=== PATIENT | male | born 1960 | race Caucasian/White ===

== ENCOUNTER → 2016-07-09 | Outpatient (CLI) | payer BC ==
[~2016-07-09] VITALS: Ht 167.6 cm; Wt 98.8 kg
[~2016-07-09] MED LIST: ASPIR 8181 MG PO; HYSINGLA ER80 MG PO; IBUPROFEN 200200 M1 PO; MOBIC15 MG PO; MS CONTIN 30 MG30 MG PO; MS CONTIN15 MG PO; MS CONTIN30 MG PO; NORCO 5-325 TA1 EACH PO; NYQUIL PO; PERCOCET 5-3251 EACH PO; PRAVACHOL20 MG PO; PREDNISONE 20 M20 MG PO; PRINIVIL20 M1 PO; PRINZIDE 20-121 EACH PO; ROXICODONE15 M1 PO; VALIUM5 MG PO; ZANAFLEX4 MG PO
--- NOTE | ~2016-07-09 | HPC ---
[facility] [place] [address] PAIN MANAGEMENT CONSULTATION Name: RUTH KUMAR Room #: REG TRACEY Sanchez#: [id number] Admission: 07/09/16 Attend Phys: Luis Patterson DO Discharge: Date of : 58 Report #: [id number] THIS REPORT FOR: //name// CC: Phu Patterson HISTORY OF PRESENT ILLNESS: The patient is a 56-year-old gentleman last seen in the pain clinic, 02/24/2016. The patient came to my service in November of last year, taking high-dose short-acting opiates, oxycodone 15 mg 6 a day. He has been rotated to morphine extended release 30 mg in the morning, 15 at noon and 30 at night, roughly 50% decrease in his overall opiate load. Last urine drug screen, 02/24/2016 (at the last visit) was positive for prescribed medications. He returns to pain clinic today noting that while medications are providing sufficient analgesia to participate in activities of daily living, he still has some ongoing pain he rates a 6/10. He states pain is low back, radiates into his hips, posterior thigh with some paresthesia in his anterior thighs with sitting too long. He had worked in the [employer] industry; unfortunately, he recently lost his job. He is on his 's insurance and 56 years of age. He is still somewhat looking for employment. Presently, he notes pain is exacerbated with sitting or standing for any period of time. Medications again do provide analgesia. PHYSICAL EXAMINATION: GENERAL: Shows 56-year-old gentleman. BMI is 35.2 kilograms per meter squared. VITAL SIGNS: Stable. NEUROLOGIC: Alert and oriented to person, place and time. Judged to be a reasonable historian. Rises from chair using armrest, modestly antalgic gait, though. Lower extremity strength is generally preserved. Straight leg raise is negative. Some hip flexion issue with weakness. DIAGNOSTIC STUDIES: Reviewed diagnostic studies including MRI of the lumbar spine, dated from 2011, noting facet degenerative changes, worse at L5-S1; moderate stenosis and no dramatic surgical compromises noted. ASSESSMENT: Symptomatic lumbar radiculopathy; axial back pain, requiring complex medication management, stable on baseline medication. Last urine drug screen at last visit positive for prescribed medications. RECOMMENDATIONS: Long discussion with the patient today about therapeutic options. We have elected to continue MS Contin 30 mg b.i.d. with MS Contin 15 mg at noon. I did suggest that he try dropping the noon dose to see if this changes functional ability. If, after a few weeks, he is able to get by with 30 mg of MS Contin b.i.d., he may consider dropping the evening dose from 30 to [address] [address] PAIN MANAGEMENT CONSULTATION Name: RUTH KUMAR Room #: REG CLElisabeth Sanchez#: [id number] Admission: 07/09/16 Attend Phys: Luis Patterson DO Discharge: Date of : 58 Report #: [id number]. I have taken the liberty, however, of writing for 2 months of the current dose of 75 mg MS today. Discharged in good and stable condition. We reviewed the fact that opiate medications are being used to provide analgesia adequate to support activities of daily living, not attempting to achieve a specific pain score on the 0-10 Visual Analog Scale. The current opiate medications are providing sufficient analgesia to allow the patient to participate in activities of daily living. The patient is not exhibiting any aberrant behavior suggestive of drug diversion. The patient is not having any adverse reactions to medications. The patient is not suffering from daytime somnolence or mental acuity changes. The patient is managing opiate-induced constipation with appropriate dluf-dbz-zrjzati agents and dietary considerations. The patient was counseled on concern for caution with operating a motor vehicle while using opiate medications. A physical exam was performed and the patient's functional status was evaluated. All patients with back pain were advised against the bed rest greater than 4 days and were advised to return to normal activities. Pain score assessment was noted and the treatment plan was reviewed with the patient. All current medications, both prescribed and OTC were reviewed and reconciled on the electronic medical record. Tobacco screening was accomplished and smoking cessation was advised when indicated. BMI was noted and diet/exercise modification was recommended for all patients following outside normal parameters. I reviewed with the patient today their responsibilities to safeguard prescription medications, reviewed their responsibility to utilize medications only as prescribed by the physician. They are to seek and receive pain medications only from 1 physician group ( [facility]). They are to use 1 pharmacy and keep the clinic informed if they change pharmacies. Their responsibilities include making followup visits in a timely fashion and to avoid abrupt discontinuation of medication usage. Their responsibilities further include bringing their medications (bottles from the pharmacy with residual pills) to the visit for possible confirmation of pill counts and the patient understands it is their responsibility to submit to random drug screens to ensure both that the medications prescribed are present, and that no other controlled substances are present. All prescriptions provided today were generated electronically. By: [id number] Luis Patterson DO /nt
[2016-07-09 09:58] VITALS: BP 145/74
== END ==
LOC: PAIN 07:34
DX: M54.16 Radiculopathy, lumbar region (principal); I10 Essential (primary) hypertension; F17.210 Nicotine dependence, cigarettes, uncomplicated

== ENCOUNTER → 2016-09-03 | Outpatient (CLI) | payer BC ==
[~2016-09-03] VITALS: Ht 167.6 cm; Wt 94.1 kg
--- NOTE | ~2016-09-03 | HPC ---
[facility] [address] [place] [address] PAIN MANAGEMENT CONSULTATION Name: RUTH KUMAR Room #: REG TRACEY Sanchez#: [id number] Admission: 09/03/16 Attend Phys: Luis Patterson DO Discharge: Date of : 58 Report #: [id number] THIS REPORT FOR: //name// CC: Phu Patterson The patient is a 56-year-old gentleman, last seen in the pain clinic 07/09/2016, continued on MS Contin 30 mg b.i.d. with 15 mg midday. Taking 75 mEq of morphine for chronic axial back pain, lumbar radiculopathy requiring complex medication management. Prior urine drug screen was accomplished 02/24/2016, positive for prescribed medications. Returns to pain clinic today, last visit was 07/09/2016. Suggested trying to drop the noon time dose though the patient found that while doing this he had exacerbation of back pain, low back, right greater than left leg. To his credit, he has significantly attenuated his tobacco habit, he is down to smoking about 4 cigarettes a day, though he is also using a "E cigarettes." his pain is a 6/10. PHYSICAL EXAMINATION: Relatively otherwise unchanged. A 56-year-old gentleman, BMI is 33.5 kilograms per meter squared. Blood pressure 139/75, pulse 75, respirations are 20. Alert and oriented to person, place and time, judged to be a reasonable historian. Rises from chair using armrest. Modestly antalgic gait, diffuse tenderness across the low back, no discrete triggers points are noted. We reviewed the fact that opiate medications are being used to provide analgesia adequate to support activities of daily living, not attempting to achieve a specific pain score on the 0-10 Visual Analog Scale. The current opiate medications are providing sufficient analgesia to allow the patient to participate in activities of daily living. The patient is not exhibiting any aberrant behavior suggestive of drug diversion. The patient is not having any adverse reactions to medications. The patient is not suffering from daytime somnolence or mental acuity changes. The patient is managing opiate-induced constipation with appropriate irpi-ukc-ezwgevm agents and dietary considerations. The patient was counseled on concern for caution with operating a motor vehicle while using opiate medications. A physical exam was performed and the patient's functional status was evaluated. All patients with back pain were advised against the bed rest greater than 4 days and were advised to return to normal activities. Pain score assessment was noted and the treatment plan was reviewed with the patient. All current medications, both prescribed and OTC were reviewed and reconciled on the electronic medical record. Tobacco screening was accomplished and smoking cessation was advised when indicated. BMI was noted and diet/exercise modification was recommended for all patients following outside normal parameters. I reviewed with the patient today their responsibilities to [address] [address] PAIN MANAGEMENT CONSULTATION Name: RUTH KUMAR Room #: REG CL Daniel#: [id number] Admission: 09/03/16 Attend Phys: Luis Patterson DO Discharge: Date of : 58 Report #: [id number] prescription medications, reviewed their responsibility to utilize medications only as prescribed by the physician. They are to seek and receive pain medications only from 1 physician group ( [facility]). They are to use 1 pharmacy and keep the clinic informed if they change pharmacies. Their responsibilities include making followup visits in a timely fashion and to avoid abrupt discontinuation of medication usage. Their responsibilities further include bringing their medications (bottles from the pharmacy with residual pills) to the visit for possible confirmation of pill counts and the patient understands it is their responsibility to submit to random drug screens to ensure both that the medications prescribed are present, and that no other controlled substances are present. All prescriptions provided today were generated electronically. ASSESSMENT: Symptomatic lumbar radiculopathy status post decompressive laminectomy requiring complex medication management. RECOMMENDATION: The patient had worked as a , he lost his job. He has 2 job interviews coming up this week. We have elected to continue his medication unchanged, MS Contin 30 mg b.i.d. with MS Contin 15 mg midday. I have taken the liberty of writing for 2 months current medications. We will follow up in 2 months for reevaluation. If his job situation is stable and he is doing reasonably well, we will again try weaning his opiate load as able. <ELECTRONICALLY SIGNED> By: Luis Patterson DO 09/07/16 1606 [id number] 17 Luis Patterson DO /nt
[2016-09-03 13:05] VITALS: BP 139/75
== END | disposition home or self-care (01) ==
LOC: PAIN 06:56
DX: M54.16 Radiculopathy, lumbar region (principal); Z98.890 Other specified postprocedural states; F17.210 Nicotine dependence, cigarettes, uncomplicated

== ENCOUNTER → 2016-10-22 | Outpatient (CLI) | payer BC ==
[~2016-10-22] VITALS: Ht 167.6 cm; Wt 92.2 kg
--- NOTE | ~2016-10-22 | HPC ---
[facility] [place] [address] PAIN MANAGEMENT CONSULTATION Name: RUTH KUMAR Room #: REG TRACEY Sanchez#: [id number] Admission: 10/22/16 Attend Phys: Luis Patterson DO Discharge: Date of : 58 Report #: [id number] THIS REPORT FOR: //name// CC: Phu Patterson The patient is a 56-year-old gentleman, prior seen in the pain clinic 09/03/2016, status post lumbar decompressive laminectomy and requiring complex medication management. Continued on MS Contin 30 mg b.i.d. with MS Contin 15 mg at noon. Trying to wean tobacco. Returns to pain clinic today. 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 Pain seems to be helped, but he still has ongoing paresthesia in the right leg and sitting develops numbness and tingling in the leg. Concern for ongoing untreated neuropathy, rates his pain as a 6 on VAS with current medication, symptoms have been present since 2007. I initially saw him in consultation in November 2015. He had 2 prior epidural injections, one with some efficacy and the second injection, caused increase in symptoms. When he came to me, he was on fairly high opiate load, taking oxycodone 15 mg 6 times a day (roughly equivalent to 135 mg of morphine). He is down to 75 mg of morphine a day. Unfortunately, his MRI somewhat dated from 2011, but even then he had asymmetric right disk protrusion at L4-L5 abutting the right exiting nerve roots with moderate bilateral neural foraminal stenosis. PHYSICAL EXAMINATION: Today, notes a 56-year-old gentleman, BMI is 32.8 kg/m2. Vital signs stable. Rises from chair using armrest. Nominally antalgic gait. Slight decreased right hip flexion and lower extremity extension strength. Deep tendon reflexes modestly diminished on the right compared to the left. Straight leg raise curiously is negative. We reviewed the fact that opiate medications are being used to provide analgesia adequate to support activities of daily living, not attempting to achieve a specific pain score on the 0-10 Visual Analog Scale. The current opiate medications are providing sufficient analgesia to allow the patient to participate in activities of daily living. The patient is not exhibiting any aberrant behavior suggestive of drug diversion. The patient is not having any adverse reactions to medications. The patient is not suffering from daytime somnolence or mental acuity changes. The patient is managing opiate-induced constipation with appropriate uguk-qru-qrmbpdn agents and dietary considerations. The patient was counseled on concern for caution with operating a motor vehicle while using opiate medications. A physical exam was performed and the patient's functional status was evaluated. All patients with back pain were advised against the bed rest greater than 4 days and were advised to return to normal activities. Pain score assessment was noted and the treatment plan was reviewed with the patient. All current [address] [address] PAIN MANAGEMENT CONSULTATION Name: RUTH KUMAR Room #: REG TRACEY Sanchez#: [id number] Admission: 10/22/16 Attend Phys: Luis Patterson DO Discharge: Date of : 58 Report #: [id number] medications, both prescribed and OTC were reviewed and reconciled on the electronic medical record. Tobacco screening was accomplished and smoking cessation was advised when indicated. BMI was noted and diet/exercise modification was recommended for all patients following outside normal parameters. I reviewed with the patient today their responsibilities to safeguard prescription medications, reviewed their responsibility to utilize medications only as prescribed by the physician. They are to seek and receive pain medications only from 1 physician group ( [facility]). They are to use 1 pharmacy and keep the clinic informed if they change pharmacies. Their responsibilities include making followup visits in a timely fashion and to avoid abrupt discontinuation of medication usage. Their responsibilities further include bringing their medications (bottles from the pharmacy with residual pills) to the visit for possible confirmation of pill counts and the patient understands it is their responsibility to submit to random drug screens to ensure both that the medications prescribed are present, and that no other controlled substances are present. All prescriptions provided today were generated electronically. K-TRACS was reviewed, it is negative, the patient fills his prescriptions in [place]. ASSESSMENT: Symptomatic lumbar radiculopathy secondary to spinal stenosis. RECOMMENDATION: Discussion with the patient today about therapeutic options. The patient I think would benefit from decompressive laminectomy. He will need a new MRI. I have elected to continue his baseline narcotic unchanged, MS Contin 30 mg b.i.d. with MS Contin 15 mg at noon and no p.r.n. medication. I have taken the liberty of writing for 2 months of current medication. I did write for an MRI request. I did refer the patient to Dr. Art Munoz for surgical opinion after the MRI. By: [id number] Luis Patterson DO /nt
[2016-10-22 13:24] VITALS: BP 122/64
== END | disposition home or self-care (01) ==
LOC: PAIN 07:22
DX: M48.06 Spinal stenosis, lumbar region (principal); G89.29 Other chronic pain; F17.210 Nicotine dependence, cigarettes, uncomplicated; Z98.890 Other specified postprocedural states; Z79.891 Long term (current) use of opiate analgesic; Z79.82 Long term (current) use of aspirin; Z79.899 Other long term (current) drug therapy

== ENCOUNTER → 2016-12-20 | Outpatient (CLI) | payer BC ==
[~2016-12-20] VITALS: Ht 167.6 cm; Wt 92.3 kg
--- NOTE | ~2016-12-20 | HPC ---
[facility] [place] [address] [address] PAIN MANAGEMENT CONSULTATION Name: RUTH KUMAR Room #: REG TRACEY Sanchez#: [id number] Admission: 12/20/16 Attend Phys: Luis Patterson DO Discharge: Date of : 58 Report #: [id number] THIS REPORT FOR: //name// CC: Phu Patterson The patient is a 56-year-old gentleman being treated for symptomatic lumbar radiculopathy secondary to spinal stenosis, requiring high-risk complex medication management. Last seen in the pain clinic on 10/22/2016. Continued on MS Contin 30 mg in the morning, 15 at noon, 30 at night. Having ongoing low back and right leg pain. A component of paresthesia. Describes a burning dysesthesia in his thighs with sitting. The patient continues to smoke though he was counseled regarding same. He is trying to wean down. I had ordered MRI at last visit, though patient was unable to get this accomplished due to inability to afford the copay. He returns to pain clinic noting pain is a 6 on a VAS. He is interested in possibly pursuing a more definitive surgical intervention. Unfortunately, his last MRI was back in 2011. At that time, focal disk was noted at L4-L5 along with asymmetric disk protrusion at L5-S1, compromising the exiting nerve root at this level. I suspect that these symptoms have simply gotten worse over time. PHYSICAL EXAMINATION: Unchanged from last visit, 56-year-old gentleman, BMI is 32.8 kilograms per meter squared. Vital signs stable as noted in the EMR. Rises from chair using armrest. Modestly antalgic gait. Again, pain in the bilateral thighs when sitting, though on ambulation, he has paresthesia in the right leg with slight decreased right hip flexion and lower extremity extension strength. ASSESSMENT: Lumbar radiculopathy secondary to spinal stenosis, requiring high-risk complex medication management. RECOMMENDATIONS: Current medication unchanged, MS Contin 30 mg in the morning, 15 at noon, 30 at night. I have taken the liberty of writing for 2 months of current medication. We reviewed the fact that opiate medications are being used to provide analgesia adequate to support activities of daily living, not attempting to achieve a specific pain score on the 0-10 Visual Analog Scale. The current opiate medications are providing sufficient analgesia to allow the patient to participate in activities of daily living. The patient is not exhibiting any aberrant behavior suggestive of drug diversion. The patient is not having any adverse reactions to medications. The patient is not suffering from daytime somnolence or mental acuity changes. The patient is managing opiate-induced constipation with appropriate klcv-yzl-seqqmgo agents and dietary considerations. The patient was counseled on concern for caution with operating [address] [address] PAIN MANAGEMENT CONSULTATION Name: RUTH KUMAR Room #: REG TRACEY Sanchez#: [id number] Admission: 12/20/16 Attend Phys: Luis Patterson DO Discharge: Date of : 58 Report #: [id number] a motor vehicle while using opiate medications. A physical exam was performed and the patient's functional status was evaluated. All patients with back pain were advised against the bed rest greater than 4 days and were advised to return to normal activities. Pain score assessment was noted and the treatment plan was reviewed with the patient. All current medications, both prescribed and OTC were reviewed and reconciled on the electronic medical record. Tobacco screening was accomplished and smoking cessation was advised when indicated. BMI was noted and diet/exercise modification was recommended for all patients following outside normal parameters. I reviewed with the patient today their responsibilities to safeguard prescription medications, reviewed their responsibility to utilize medications only as prescribed by the physician. They are to seek and receive pain medications only from 1 physician group ( [facility]). They are to use 1 pharmacy and keep the clinic informed if they change pharmacies. Their responsibilities include making followup visits in a timely fashion and to avoid abrupt discontinuation of medication usage. Their responsibilities further include bringing their medications (bottles from the pharmacy with residual pills) to the visit for possible confirmation of pill counts and the patient understands it is their responsibility to submit to random drug screens to ensure both that the medications prescribed are present, and that no other controlled substances are present. All prescriptions provided today were generated electronically. <ELECTRONICALLY SIGNED> By: Luis Patterson DO 12/21/16 0949 [id number] Luis Patterson DO /nt
[2016-12-20 10:23] VITALS: BP 144/78
== END | disposition home or self-care (01) ==
LOC: PAIN 06:56
DX: M54.16 Radiculopathy, lumbar region (principal); F17.200 Nicotine dependence, unspecified, uncomplicated; Z68.32 Body mass index [BMI] 32.0-32.9, adult

== ENCOUNTER → 2017-02-18 | Outpatient (CLI) | payer BC ==
[~2017-02-18] VITALS: Ht 167.6 cm; Wt 92.9 kg
--- NOTE | ~2017-02-18 | HPC ---
[facility] [address] [place] [address] PAIN MANAGEMENT CONSULTATION Name: RUTH KUMAR Room #: REG TRACEY Sanchez#: [id number] Admission: 02/18/17 Attend Phys: Luis Patterson DO Discharge: Date of : 58 Report #: [id number] THIS REPORT FOR: //name// CC: Phu Patterson The patient is a 56-year-old gentleman prior seen in the pain clinic on 12/20/2016, diagnosed with symptomatic lumbar radiculopathy secondary to spinal stenosis requiring high risk complex medication management. Stable on MS Contin 30 mg in the morning and night and 15 mg at midday. He returns to the pain clinic today noting medications are generally providing sufficient analgesia to participate in activities of daily living. I will give him samples of Movantik. He has neurogenic claudication. If he walks one block, pain in the low back, right greater than left leg. He likely needs back surgery, but we do need new MRI. He is unable to get the MRI presently due to cost concerns. He is planning on getting the MRI the first of the year. We reviewed the fact that opiate medications are being used to provide analgesia adequate to support activities of daily living, not attempting to achieve a specific pain score on the 0-10 Visual Analog Scale. The current opiate medications are providing sufficient analgesia to allow the patient to participate in activities of daily living. The patient is not exhibiting any aberrant behavior suggestive of drug diversion. The patient is not having any adverse reactions to medications. The patient is not suffering from daytime somnolence or mental acuity changes. The patient is managing opiate-induced constipation with appropriate ecph-san-izsjfbi agents and dietary considerations. The patient was counseled on concern for caution with operating a motor vehicle while using opiate medications. A physical exam was performed and the patient's functional status was evaluated. All patients with back pain were advised against the bed rest greater than 4 days and were advised to return to normal activities. Pain score assessment was noted and the treatment plan was reviewed with the patient. All current medications, both prescribed and OTC were reviewed and reconciled on the electronic medical record. Tobacco screening was accomplished and smoking cessation was advised when indicated. BMI was noted and diet/exercise modification was recommended for all patients following outside normal parameters. I reviewed with the patient today their responsibilities to safeguard prescription medications, reviewed their responsibility to utilize medications only as prescribed by the physician. They are to seek and receive pain medications only from 1 physician group ( [facility]). They are to use 1 pharmacy and keep the clinic informed if they change pharmacies. Their responsibilities include making followup visits in a timely fashion and to avoid abrupt discontinuation of medication usage. Their responsibilities further include bringing their medications (bottles from the pharmacy with residual pills) to the visit for possible confirmation of pill counts and the patient [address] [address] PAIN MANAGEMENT CONSULTATION Name: RUTH KUMAR Room #: REG TRACEY Sanchez#: [id number] Admission: 02/18/17 Attend Phys: Luis Patterson DO Discharge: Date of : 58 Report #: [id number] understands it is their responsibility to submit to random drug screens to ensure both that the medications prescribed are present, and that no other controlled substances are present. All prescriptions provided today were generated electronically. PHYSICAL EXAMINATION: Unchanged. This is a 56-year-old gentleman and BMI is 33.1 kilograms per meter squared. Vital signs stable as noted in the EMR. Diffuse axial back pain. Rises from chair using armrest. Positive straight leg raise on the right slightly on the left. Lower extremity strength is generally preserved. ASSESSMENT: Symptomatic lumbar radiculopathy secondary to spinal stenosis requiring high risk complex medication management. RECOMMENDATION: Continue baseline medication unchanged for another 2 months. Follow up at that time earlier if needed. <ELECTRONICALLY SIGNED> By: Luis Patterson DO 02/22/17 0943 [id number] Luis Patterson DO /nt
[2017-02-18 10:22] VITALS: BP 148/68
== END ==
LOC: PAIN 06:46
DX: M54.16 Radiculopathy, lumbar region (principal); M48.061 Spinal stenosis, lumbar region without neurogenic claudication; Z79.899 Other long term (current) drug therapy

== ENCOUNTER → 2017-04-15 | Outpatient (CLI) | payer BC ==
[~2017-04-15] VITALS: Ht 167.6 cm; Wt 93.0 kg
--- NOTE | ~2017-04-15 | HPC ---
[facility] [address] [address] PAIN MANAGEMENT CONSULTATION Name: RUTH KUMAR Room #: REG MALCOLMElisabeth Sanchez#: [id number] Admission: 04/15/17 Attend Phys: Luis Patterson DO Discharge: Date of : 58 Report #: [id number] THIS REPORT FOR: //name// CC: Phu Patterson The patient is a 56-year-old gentleman, prior seen in the pain clinic on 02/18/2017, continued on MS Contin 30 mg in the morning, 15 in the afternoon and 30 at night for ongoing lumbar radiculopathy secondary to spinal stenosis. The patient returns to pain clinic today. Continues to have ongoing neurogenic claudication. States if he stands or walks greater than about 5 minutes, pain becomes problematic. Has left greater than right leg weakness. Straight leg raise is grossly positive bilaterally. Neurogenic claudication is manifested as "heavy legs" with paresthesia in his thighs when sitting. Pain has been present from about 2007. Rates it an 8 on a VAS with current medication. We talked about moving forward with surgery sometime this year (2018). He has postponed due to economic reasons. PHYSICAL EXAMINATION: Shows 56-year-old gentleman, BMI 33.1 kilograms per meter squared. Blood pressure is elevated today 192/90, pulse 90, respirations 18. He did not take his lisinopril this morning. MEDICATIONS: List was reconciled, which includes the aforementioned lisinopril, pravastatin and pain medications as noted above. He has not fallen in the last 3 months. We reviewed his opiate consent to treat contract which was signed on 12/02/2015. Again, with a moderately antalgic gait and neurogenic claudication. Positive straight leg raise bilaterally, left greater than right. Objective leg weakness. We elected to repeat an MRI. Prior MRI from 2011 had noted facet degenerative changes and neural foraminal narrowing, moderate to mild facet arthropathy L4-L5, L5-1. We reviewed the fact that opiate medications are being used to provide analgesia adequate to support activities of daily living, not attempting to achieve a specific pain score on the 0-10 Visual Analog Scale. The current opiate medications are providing sufficient analgesia to allow the patient to participate in activities of daily living. The patient is not exhibiting any aberrant behavior suggestive of drug diversion. The patient is not having any adverse reactions to medications. The patient is not suffering from daytime somnolence or mental acuity changes. The patient is managing opiate-induced constipation with appropriate zbnv-lvi-hiutjgu agents and dietary considerations. The patient was counseled on concern for caution with operating a motor vehicle while using opiate medications. A physical exam was performed and the patient's [place] [address] PAIN MANAGEMENT CONSULTATION Name: RUTH KUMAR Room #: REG TRACEY Sanchez#: [id number] Admission: 04/15/17 Attend Phys: Luis Patterson DO Discharge: Date of : 58 Report #: [id number] All patients with back pain were advised against the bed rest greater than 4 days and were advised to return to normal activities. Pain score assessment was noted and the treatment plan was reviewed with the patient. All current medications, both prescribed and OTC were reviewed and reconciled on the electronic medical record. Tobacco screening was accomplished and smoking cessation was advised when indicated. BMI was noted and diet/exercise modification was recommended for all patients following outside normal parameters. I reviewed with the patient today their responsibilities to safeguard prescription medications, reviewed their responsibility to utilize medications only as prescribed by the physician. They are to seek and receive pain medications only from 1 physician group ( [facility]). They are to use 1 pharmacy and keep the clinic informed if they change pharmacies. Their responsibilities include making followup visits in a timely fashion and to avoid abrupt discontinuation of medication usage. Their responsibilities further include bringing their medications (bottles from the pharmacy with residual pills) to the visit for possible confirmation of pill counts and the patient understands it is their responsibility to submit to random drug screens to ensure both that the medications prescribed are present, and that no other controlled substances are present. All prescriptions provided today were generated electronically. ASSESSMENT: Symptomatic lumbar radiculopathy secondary to spinal stenosis and neurogenic claudication, requiring high risk complex medication management. RECOMMENDATION: 1. MRI of the lumbar spine. 2. Continue baseline medication unchanged including MS Contin 30 mg in the morning, 15 in the evening and 30 at night, along with tizanidine for breakthrough pain (4 mg t.i.d.). I have taken the liberty of writing for 2 months of current medication. While the patient follow up in 2 months, we will review MRI. I have given him contact information for multiple back surgeons board certified and competent surgeons to follow up with. Concern with neurogenic claudication at some point, he will develop weakness that is not reversible. <ELECTRONICALLY SIGNED> By: Luis Patterson DO 04/17/17 1417 [id number] Luis Patterson DO /nt
[2017-04-15 08:22] VITALS: BP 192/90
== END ==
LOC: PAIN 06:49
DX: M48.062 Spinal stenosis, lumbar region with neurogenic claudication (principal); Z79.899 Other long term (current) drug therapy

== ENCOUNTER → 2017-05-31 | Outpatient (CLI) | payer BC | LOC: MRI 04-24 10:42 | DX: M47.896 Other spondylosis, lumbar region (principal); M48.061 Spinal stenosis, lumbar region without neurogenic claudication; M51.26 Other intervertebral disc displacement, lumbar region; M47.897 Other spondylosis, lumbosacral region ==

== ENCOUNTER → 2017-06-10 | Outpatient (CLI) | payer BC ==
[~2017-06-10] VITALS: Ht 167.6 cm; Wt 93.7 kg
--- NOTE | ~2017-06-10 | HPC ---
[facility] [place] [address] PAIN MANAGEMENT CONSULTATION Name: RUTH KUMAR Room #: REG TRACEY Sanchez#: [id number] Admission: 06/10/17 Attend Phys: Luis Patterson DO Discharge: Date of : 58 Report #: [id number] THIS REPORT FOR: //name// CC: Phu Patterson DATE OF SERVICE: 06/10/2017 The patient is a 57-year-old gentleman being treated for lumbar radiculopathy, chronic pain requiring complex medication management, and axial back pain. He was last seen in the pain clinic on 04/15/2017. The patient was initially seen back in 11/2015. He had initial lifting injury greater than a decade ago. He was on his knees in a truck, lifting at work with exacerbation of back pain. He has had diffuse back pain since. Notes he has some subjective weakness, left greater than right leg. He does have neurogenic claudication with "heavy legs" and paresthesia when he is sitting. Standing exacerbates pain. He had discussed surgery at one point, though he had postponed it for economic reasons (?). I had ordered an MRI which was obtained on 05/31/2017. We compared this to a prior study from 02/15/2012. The patient presents to the pain clinic today for a prolonged visit, he was seen for greater than 25 minutes, greater than 50% of the time spent counseling the patient. The patient complains of pain of 6 on a VAS, the pain is across the low back with really nominal radiation sitting or standing, it is with ongoing activity that he starts to get more radicular component. He denies bowel or bladder continence changes. PHYSICAL EXAMINATION: Shows a 57-year-old gentleman, BMI is 33.3 kilograms per meter squared. Blood pressure is quite elevated today 182/102, pulse 93. The patient states he has not taken his blood pressure medicines today, though reviewing the chart, it appears he has been pretty significantly hypertensive over the last several visits. I believe he takes his blood pressure medicine fairly intermittently. It was back in 12/2016, the last time I noted a normal blood pressure (144/78). The patient is ostensibly taking lisinopril along with Pravachol for dyslipidemia. The patient rises from the chair using armrest. Gait is actually tandem. He does have tenderness over the L5-S1 area. Lower extremity strength is generally preserved. Modestly positive straight leg raise bilaterally. Positive Redd test, positive Gaenslen's test and pelvic distraction. I reviewed the MRI from 05/31/2017 with the patient. He has disk degenerative changes at L5-S1 with a central disk abutting the anterior portion of the thecal [address] [address] PAIN MANAGEMENT CONSULTATION Name: RUTH KUMAR Room #: REG CLElisabeth Sanchez#: [id number] Admission: 06/10/17 Attend Phys: Luis Patterson DO Discharge: Date of : 58 Report #: [id number] sac; however, it is without significant overall impingement on the canal. There is mild posterior facet degenerative changes at this level with disk bulging causing mild foraminal stenosis, left greater than right. L4-L5 does note a little central disk protrusion, again canal is fairly robust at 11 mm. There are only mild posterior facet degenerative changes at this level. We reviewed the fact that opiate medications are being used to provide analgesia adequate to support activities of daily living, not attempting to achieve a specific pain score on the 0-10 Visual Analog Scale. The current opiate medications are providing sufficient analgesia to allow the patient to participate in activities of daily living. The patient is not exhibiting any aberrant behavior suggestive of drug diversion. The patient is not having any adverse reactions to medications. The patient is not suffering from daytime somnolence or mental acuity changes. The patient is managing opiate-induced constipation with appropriate ybgn-hpc-pxnjbtb agents and dietary considerations. The patient was counseled on concern for caution with operating a motor vehicle while using opiate medications. A physical exam was performed and the patient's functional status was evaluated. All patients with back pain were advised against the bed rest greater than 4 days and were advised to return to normal activities. Pain score assessment was noted and the treatment plan was reviewed with the patient. All current medications, both prescribed and OTC were reviewed and reconciled on the electronic medical record. Tobacco screening was accomplished and smoking cessation was advised when indicated. BMI was noted and diet/exercise modification was recommended for all patients following outside normal parameters. I reviewed with the patient today their responsibilities to safeguard prescription medications, reviewed their responsibility to utilize medications only as prescribed by the physician. They are to seek and receive pain medications only from 1 physician group ( [facility]). They are to use 1 pharmacy and keep the clinic informed if they change pharmacies. Their responsibilities include making followup visits in a timely fashion and to avoid abrupt discontinuation of medication usage. Their responsibilities further include bringing their medications (bottles from the pharmacy with residual pills) to the visit for possible confirmation of pill counts and the patient understands it is their responsibility to submit to random drug screens to ensure both that the medications prescribed are present, and that no other controlled substances are present. All prescriptions provided today were generated electronically. The patient's last opiate consent to treat contract was signed in 11/2015. Reviewing the record, I do not see a recent random drug screen. We elected to get a random buccal drug swab today. No aberrant behavior suggestive for drug diversion, simply complying with opiate consent to treat contract. ASSESSMENT: Axial back pain, lumbosacral spondylosis L5-S1 (M47.817), SI mediated dysfunction, axial back pain, component of lumbar radiculopathy by [facility] [address] [place] [address] PAIN MANAGEMENT CONSULTATION Name: RAZATOBIASRUTH Room #: REG [facility] [id number] Admission: 06/10/17 Attend Phys: Luis Patterson DO Discharge: Date of : 58 Report #: [id number] clinical exam and history requiring complex medication management. RECOMMENDATIONS: 1. Continue current narcotic unchanged, MS Contin 30 mg a.m. and p.m. with 15 mg midday for a total of 75 mEq of morphine a day. Continue tizanidine 4 mg t.i.d. for spasm. The patient was counseled regarding need for nicotine cessation (he smokes greater than 1 pack a day) and he was also counseled regarding need to resume his antihypertensive and follow up with a general repairer physician regarding the same. 2. We will seek authorization for bilateral SI joint injections under fluoroscopy at next visit. 3. The patient was given consult for physical therapy for core strengthening. Again, follow up in 2 months for medication management. Discharged in good stable condition after prolonged visit, greater than 50% of the 25+ minute visit was spent counseling the patient, reviewing therapeutic options, diagnostic studies and talking about physical therapy and need for smoking cessation. By: [id number] 1310 Luis Patterson DO /nt
[2017-06-10 11:14] VITALS: BP 182/102
== END ==
LOC: PAIN 07:19
DX: M47.27 Other spondylosis with radiculopathy, lumbosacral region (principal); Z79.899 Other long term (current) drug therapy